=== PATIENT | female | born 1995 | race Hispanic/Latino ===

== ENCOUNTER 2024-08-30 10:34 | Emergency (ER) | payer SELFPAY ==
[~2024-08-30] VITALS: Ht 152.4 cm; Wt 69.4 kg
[~2024-08-30 10:34] MED LIST: PREN-196 PO
[2024-08-30 11:07] LABS: APPEARANCE,URINE CLEAR (CLEAR); BILIRUBIN,URINE NEGATIVE (NEGATIVE); COLOR,URINE COLORLESS (YELLOW); GLUCOSE, URINE (UA) NEGATIVE (NEGATIVE); KETONES,URINE NEGATIVE (NEGATIVE); LEUKOCYTE ESTERASE ,URINE NEGATIVE Leu/uL (NEGATIVE); MUCUS,URINE RARE LPF (None Seen); NITRATE,URINE NEGATIVE (NEGATIVE); OCCULT BLOOD,URINE NEGATIVE (NEGATIVE); PH,URINE 7.5 (5.0-8.0); PROTEIN,URINE NEGATIVE (NEGATIVE); UROBILINOGEN,URINE 0.2 mg/dL (0.2-1.0); WBC,URINE 0-1 /HPF (0-1)
[2024-08-30] MEDS: ketOROlac 30MG VIAL (30MG/ML) IM ONE (11:30)
[2024-08-30] MEDS: ORPHENADRINE 60MG/2ML IM ONE (11:30)
--- NOTE | 2024-08-30 11:34 | NUR ---
ASSUMED CARE AT THIS TIME RECIEVED REPORT FROM TRUDY JOYNER
--- NOTE | 2024-08-30 12:15 | HMCIMG ---
LUMBAR SPINE 2-3VWS HISTORY: Back pain COMPARISON: None FINDINGS: 3 images of the lumbar spine were obtained. There is straightening of normal lordotic curvature which may be related to muscle spasm or positioning. No loss of vertebral height is seen. No fracture or dislocation is seen. IMPRESSION: 1. No fracture is seen.
--- NOTE | 2024-08-30 12:37 | ERN ---
General Chief Complaint: Back Pain-No Injury Stated Complaint: BACK PAIN Time Seen by MD: 10:36 Source: patient History of Present Illness Initial Comments 29-year-old female coming in to be evaluated for back pain. Patient states that the back pain has been ongoing for several years. She states that the pain fluctuates in intensity. She also states that the pain is radiating down the left glute rule region to the left leg. Allergies: Coded Allergies: No Known Drug Allergies (Unverified Allergy, Unknown, 01/08/16) Home Meds Active Scripts Naproxen (Naproxen) 500 Mg Tablet, 1 TAB PO BID for pain for 30 Days, #60 TAB 0 Refills Prov:DAVID BURGESS MD 08/30/24 Reported Medications Vit No.124/Iron/FA ( Vitamin Tablet) 1 Each Tablet, 1 EACH PO DAILY, TAB 01/08/16 Past Medical History Past Medical History: No Pertinent History Past Surgical History: None Female( History) LMP: Aug 14, 2024 ROS Dictation CONSTITUTIONAL: No chills, no fever, no weakness, no diaphoresis, no malaise. HEAD/FACE: No signs of trauma. EENT: No eye pain, no blurred vision, no tearing, no double vision, no ear pain, no ear discharge, no nose pain, no nasal congestion, no throat pain, no throat swelling, no mouth pain. RESPIRATORY: No cough, no orthopnea, no SOB, no stridor, no wheezing. CARDIOVASCULAR: No chest pain, no edema, no palpitations, no syncope. GASTROINTESTINAL/ABDOMINAL: No abdominal pain, no constipation, no diarrhea, no nausea, no vomiting. GENITOURINARY: No abnormal discharge, no dysuria, no frequent urination, no hematuria. No complaints of pain in the genitals. MUSCULOSKELETAL: back pain, no gout, no joint pain, no joint swelling, no muscle pain, no muscle stiffness, no neck pain. INTEGUMENTARY: No change in color, no change in hair/nails, no dryness, no lesion, no lumps, no rash. NEUROLOGICAL/PSYCH: No anxiety, not depressed, no emotional problem, no headache, no numbness, no pre-existing deficit, no history of seizures, no tremors, no weakness. HEMATOLOGIC/LYMPHATIC: Not anemic, no history of blood clots, no apparent bleeding, no bruising, glands not swollen. All Systems Negative, Except as Noted. Physical Exam Physical Exam Dictation VITAL SIGNS: Reviewed. GENERAL APPEARANCE: Alert, oriented x3, no acute distress, obese. HEAD AND FACE: Non-traumatic. EYES: PERRL, pink conjunctivas, eyelid no trauma, anterior chamber clear. EARS: Pinnas intact and no signs of trauma or erythema. Ear canals clear and no discharge. TMs no erythema. NOSE: No discharge, no bleeding. OROPHARYNX: Mouth normal, teeth no caries, tongue pink. Pharynx clear, no erythema. Tonsils no exudates, no abscesses noted. Mucous membrane moist. NECK: Supple, non-tender, no thyromegaly, no masses, no JVD, no bruits. BREAST: Deferred. CHEST: No tenderness, no crepitus, no paradoxical movement, no retractions. LUNGS: Clear, well-ventilated, symmetric, no rales, no wheezing, no rhonchi, no stridor, good breath sounds bilaterally. HEART: Regular rate, regular rhythm, no murmur, no gallops. VASCULAR: No peripheral edema. ABDOMEN: Soft, positive bowel sounds, nondistended, no guarding, nontender, no rebound, no masses no hepatomegaly, no splenomegaly, no Ramirez's sign, no hernias. RECTAL: Deferred. GENITAL: Deferred. NEUROLOGICAL: Normal speech, gross motor function intact, gross sensory function intact. MUSCULOSKELETAL: Neck nontender, full range of motion, back hoe operator, full range of motion. EXTREMITIES: Nontender, full range of motion. SKIN: Color pink, dry, no turgor, no rash, no lacerations, no abrasions, no contusions. LYMPHATICS: Deferred. Results Laboratory and Microbiology Lab and Micro Result Laboratory Tests Test 08/30/24 10:50 Urine Color COLORLESS (YELLOW) Urine Appearance CLEAR (CLEAR) Urine pH 7.5 (5.0-8.0) Urine Specific [place] 1.011 (1.001-1.031) Urine Protein NEGATIVE mg/dL (NEGATIVE) Urine Glucose (UA) NEGATIVE mg/dL (NEGATIVE) Urine Ketones NEGATIVE mg/dL (NEGATIVE) Urine Occult Blood NEGATIVE (NEGATIVE) Urine Nitrate NEGATIVE (NEGATIVE) Urine Bilirubin NEGATIVE mg/dL (NEGATIVE) Urine Urobilinogen 0.2 mg/dL (0.2-1.0) Urine Leukocyte Esterase NEGATIVE Dennis/uL Urine RBC None /HPF (0-1) Urine WBC 0-1 /HPF (0-1) Urine Bacteria None /HPF (None Seen) Urine HCG, Qualitative NEGATIVE (NEGATIVE) MDM MDM: Differential diagnosis: Lumbar strain, left-sided sciatica Rationale: Tests considered and ordered secondary to shared decision making include: Previous outside records reviewed: Old ER visits. Patient is a 29-year-old female coming in to be evaluated for lower back pain. Patient has a history of back pain with pain radiating down the left lower extremity. On physical exam left piriformis muscle tenderness on palpation. ED Course Orders Procedure Category Date Status Time ,Urine Test LAB 08/30/24 Complete 10:44 Urinalysis LAB 08/30/24 Complete W/Microscopic 10:52 Orphenadrine Citrate PHA 08/30/24 Complete (Norflex) 11:00 Ketorolac PHA 08/30/24 Complete Tromethamine 30mg/Ml 11:00 Lumbar Spine 2-3vws RAD 08/30/24 Resulted 10:59 Current Medications Medications (Trade) Dose Ordered Sig/Desirae Route PRN Reason Start Time Stop Time Status Last Admin Dose Admin Ketorolac Tromethamine (toRADol) 30 mg ONCE ONCE IM 08/30/24 11:00 08/30/24 11:04 DC 08/30/24 11:30 Orphenadrine Citrate (Norflex) 60 mg ONCE ONCE IM 08/30/24 11:00 08/30/24 11:04 DC 08/30/24 11:30 Vital Signs Date Time Temp Pulse Resp B/P (MAP) Pulse Ox O2 Delivery O2 Flow Rate FiO2 08/30/24 10:51 98.4 98 20 132/86 99 Room Air* 0 21 08/30/24 10:35 98.4 98 20 132/86 Room Air DX & DISP Disposition: Discharge Departure Impression: Primary Impression: Left sided sciatica Additional Impression: Chronic back pain Condition: Stable Scripts Naproxen (Naproxen) 500 Mg Tablet 1 TAB PO BID for pain for 30 Days, #60 TAB 0 Refills Prov: DAVID BURGESS MD 08/30/24 Additional Instructions: FOLLOW-UP WITH PRIMARY CARE PROVIDER IN 1 TO 2 DAYS. TAKE MEDICATIONS DIRECTED HERE IN THE EMERGENCY ROOM. OKAY TO CONTINUE HOME MEDICATIONS UNLESS OTHERWISE DISCUSSED DURING YOUR VISIT IN THE EMERGENCY ROOM TODAY. RETURN TO YOUR NEAREST EMERGENCY ROOM IF SYMPTOMS WORSEN OR IF THERE IS NO IMPROVEMENT. CALL 911 IF YOU NEED IMMEDIATE ASSISTANCE. TAKE TYLENOL OOSB-ESB-HMPPTMD NEEDED AND IF NO CONTRAINDICATIONS ARE PRESENT. INCREASE ORAL HYDRATION. A WOUND CULTURE OR URINE CULTURE WAS ORDERED HERE IN THE EMERGENCY ROOM DEPARTMENT PLEASE FOLLOW-UP WITH PRIMARY CARE PROVIDER AND ADVISE THEM TO GET REPEAT PORTS FROM OUR FACILITY. IF YOU HAD ANY CRISTÓBAL WRAP/SPLINTS THAT WERE APPLIED HERE, PLEASE DO NOT REMOVE THEM UNTIL YOU SEE YOUR PRIMARY CARE OR SPECIALTY. Referrals: Referrals: MILLER BENITES MD (PCP) Time of Disposition: 12:47 DAVID BURGESS MD Aug 30, 2024 12:37
[2024-08-30] MEDS ORDERED: NAPR-1194 PO (12:49)
[2024-08-30 12:52] VITALS: BP 131/80; PULSE 90; RESP 18; TEMP 98.4; O2SAT 98
== END 2024-08-30 12:58 | disposition home or self-care (01) ==
LOC: EDH 10:34
DX: M54.32 Sciatica, left side (principal)
CPT/HCPCS: 99284; 81001; 81025; 72100; 96372 ×2; J1885; J2360